=== PATIENT | male | born 1955 | race Caucasian/White ===

== ENCOUNTER → 2017-03-04 | Outpatient (CLI) | payer MEDICARE | END | disposition home or self-care (01) | LOC: CFH 16:30 | PROVIDERS: ATTEND Family Medicine | DX: M25.471 Effusion, right ankle (principal) ==

== ENCOUNTER → 2017-11-14 | Outpatient (CLI) | payer MEDICARE ==
[~2017-11-14] MED LIST: OMNIPAQUE 350 MG/ML, 100ML BOTTLE ONE
[2017-11-14 16:36] LABS: CREATININE 0.67 mg/dL (0.7-1.3)
== END | disposition home or self-care (01) ==
LOC: RAD 15:51
PROVIDERS: ATTEND Internal Medicine
DX: J90 Pleural effusion, not elsewhere classified (principal); J98.11 Atelectasis; C91.10 Chronic lymphocytic leukemia of B-cell type not having achieved remission
CPT/HCPCS: 36415; 71275; 82565; Q9967

== ENCOUNTER 2018-04-01 12:07 | Emergency (ER) | payer MEDICARE ==
[~2018-04-01] VITALS: Ht 185.4 cm; Wt 110.0 kg
[~2018-04-01 12:07] MED LIST changes: +ATOR20TA PO; +BIFI4CAP PO; +DIPH1TAB6 PO; +FINA5TAB4 PO; +GABA800T2 PO; +IBRU140C PO; +LISI-167 PO; +METF500T4 PO; -OMNIPAQUE 350 MG/ML, 100ML BOTTLE ONE; +TAMS0.4C2 PO; +TRAZ100T15 PO; +albuterol mdi
[2018-04-01 12:12] VITALS: BP 143/79
[2018-04-01] MEDS ORDERED: LIDOCAINE 2%, 20ML SQ ONE (12:30)
[2018-04-01] MEDS ORDERED: BACITRACIN ZINC OINT 500U/GM, 0.9 GM ONE (13:27)
== END 2018-04-01 13:57 | disposition home or self-care (01) ==
LOC: ED 13:03
DX: S81.011A Laceration without foreign body, right knee, initial encounter (principal); Z87.891 Personal history of nicotine dependence; W20.8XXA Other cause of strike by thrown, projected or falling object, initial encounter; Y93.89 Activity, other specified; Y99.8 Other external cause status; Y92.89 Other specified places as the place of occurrence of the external cause
CPT/HCPCS: 12032; 99284

== ENCOUNTER 2019-05-22 20:40 | Emergency (ER) | payer MEDICARE ==
[~2019-05-22] VITALS: Ht 185.4 cm; Wt 107.0 kg
[~2019-05-22 20:40] MED LIST changes: -GABA800T2 PO; +GABA800T5 PO; +METF500T17 PO; -METF500T4 PO; +TRAZ-137 PO; -TRAZ100T15 PO
[2019-05-22 20:43] VITALS: BP 166/100
== END 2019-05-22 22:34 | disposition home or self-care (01) ==
LOC: ED 22:22
DX: S93.491A Sprain of other ligament of right ankle, initial encounter (principal); S93.621A Sprain of tarsometatarsal ligament of right foot, initial encounter; E11.9 Type 2 diabetes mellitus without complications; W01.0XXA Fall on same level from slipping, tripping and stumbling without subsequent striking against object, initial encounter; Y93.89 Activity, other specified; Y92.89 Other specified places as the place of occurrence of the external cause; Y99.8 Other external cause status
CPT/HCPCS: 99283

== ENCOUNTER 2021-01-12 23:56 | Emergency (ER) | payer SELFPAY ==
[~2021-01-12] VITALS: Ht 185.4 cm; Wt 100.0 kg
[~2021-01-12 23:56] MED LIST changes: -TRAZ-137 PO; +TRAZ-175 PO
[2021-01-13] MEDS ORDERED: LABETALOL 5MG/ML, 20ML ONE (00:27)
[2021-01-13] MEDS ORDERED: LABETALOL 5MG/ML, 20ML IVPush ONE (00:30)
[2021-01-13 00:58] LABS: BASOPHILS % (AUTO) 0 % (0-1); EOSINOPHILS % (AUTO) 1 % (1-7); LYMPHOCYTES % (AUTO) 22 % (22-44); MD NO; MEAN CORPUSCULAR HEMOGLOBIN 29.7 pg (27.5-34.5); MEAN PLATELET VOLUME 8.8 fL (7.4-10.4); MONOCYTES % (AUTO) 5 % (2-9); NEUTROPHILS % (AUTO) 72 % (42-75); PLATELET COUNT 187 x10^3/uL (130-400); RED BLOOD COUNT 4.88 x10^6/uL (4.38-5.82); RED CELL DISTRIBUTION WIDTH 13.1 % (9.4-14.8)
--- NOTE | 2021-01-13 00:59 | NUR ---
PT RESTING IN BED, AWARE OF NEED FOR URINE, NO COMPLAINTS AT THIS TIME, VSS
--- NOTE | 2021-01-13 01:07 | NUR ---
BEDSIDE REPORT RECEIVED FROM [facility]. PATIENT RESTING IN BED AWAKE. IN NAD. CALL MURRAY IN REACH. WAITING FOR PATIENT TO BE ABLE TO PROVIDE URINE SAMPLE. WILL CONTINUE TO MONITOR
[2021-01-13 01:08] LABS: ALANINE AMINOTRANSFERASE 77 U/L (12-78); ALBUMIN 3.5 g/dL (3.4-5.0); ANION GAP 7 mmol/L (5-15); CALCIUM 9.2 mg/dL (8.5-10.1); CHLORIDE 105 mmol/L (98-107); CREATININE 0.78 mg/dL (0.7-1.3)
[2021-01-13 01:19] LABS: ALKALINE PHOSPHATASE 141 U/L (45-117); BILIRUBIN,TOTAL 0.6 mg/dL (0.2-1.0); TOTAL PROTEIN 6.2 g/dL (6.4-8.2); TROPONIN I < 0.015 ng/mL (0.000-0.045)
--- NOTE | 2021-01-13 02:33 | NUR ---
PATIENT RESTING IN BED IN NAD WITH EYES CLOSED. BP STARTING TO INCREASE AGAIN. PATIENT STATES HART IS "BETTER THAN IT WAS". ALL OTHER VS REMAIN STABLE. WILL CONTINUE TO MONITOR UA OBTAINED AND WALKED TO LAB
--- NOTE | 2021-01-13 02:37 | NUR ---
DR. VITALE NOTIFIED OF RISING BP
[2021-01-13] MEDS ORDERED: LABETALOL 5MG/ML, 20ML IVPush STA (02:38)
[2021-01-13 02:41] LABS: MICROSCOPIC NOT IND
--- NOTE | 2021-01-13 03:50 | NUR ---
PATIENT WITNESSED WALKING DOWN MAGALLANES WITH STEADY GAIT WITH NORMAL PACE AND ALL BELONGINGS IN TOW.
--- NOTE | 2021-01-13 03:59 | NUR ---
DISCHARGE INSTRUCTIONS REVIEWED WITH PATIENT. PATIENT STATES "WELL I CANT WALK AND I HAVE NOWHERE TO GO". I ASKED PATIENT HOW HE GETS AROUND [employer] AND HE RESPONDS "MY CAR". PATIENT REQUESTS "DIAPER" AND A BUS PASS. IV REMOVED PER DC PROTOCOL. NO FURTHER QUESTIONS WITH DISCHARGE. PRESCRIPTION HANDED DIRECTLY TO PATIENT. VS REMAIN STABLE. IMPORTANCE OF TAKING MEDICATIONS REVIEWED WITH PATIENT. PATIENT ACKNOWLEDGES EDUCATION.
[2021-01-13 04:01] VITALS: BP 145/74
== END 2021-01-13 04:03 | disposition home or self-care (01) ==
LOC: ED 01-13 03:58
DX: R53.1 Weakness (principal); R42 Dizziness and giddiness; Z76.0 Encounter for issue of repeat prescription; F51.01 Primary insomnia; E11.65 Type 2 diabetes mellitus with hyperglycemia; I10 Essential (primary) hypertension; E78.00 Pure hypercholesterolemia, unspecified
CPT/HCPCS: 36415; 71045; 80053; 81003; 83735; 83880; 84443; 84484; 85025; 93005; 96374; 96376

== ENCOUNTER 2021-06-11 22:11 | Emergency (ER) | payer MEDICARE ==
[~2021-06-11] VITALS: Ht 188 cm; Wt 101.1 kg
--- NOTE | 2021-06-11 23:53 | NUR ---
FLYER MAKER: PT. TO ROOM FROM LOBBY AT THIS TIME.
[2021-06-12] MEDS ORDERED: HYDROcodone/APAP 5/325 TABLET PO ONE (00:30)
[2021-06-12] MEDS ORDERED: CLINDAMYCIN 300 MG CAPSULE PO ONE (00:30)
[2021-06-12] MEDS ORDERED: CLINDAMYCIN 300 MG CAPSULE ONE (00:32)
[2021-06-12] MEDS ORDERED: HYDROcodone/APAP 5/325 TABLET ONE (00:33)
--- NOTE | 2021-06-12 00:39 | NUR ---
NOTIFIED MD OF PT ELEVATED BLOOD PRESSURE. PER MD PT IS OKAY FOR DISCHARGE.
[2021-06-12 00:40] VITALS: BP 192/123
== END 2021-06-12 00:41 | disposition home or self-care (01) ==
LOC: ED 22:41
DX: K02.9 Dental caries, unspecified (principal); Z76.0 Encounter for issue of repeat prescription; I11.0 Hypertensive heart disease with heart failure; I50.9 Heart failure, unspecified; E11.9 Type 2 diabetes mellitus without complications; E78.00 Pure hypercholesterolemia, unspecified
CPT/HCPCS: 99283